=== PATIENT | male | born 1965 | race Caucasian/White ===

== ENCOUNTER 2016-11-24 07:34 | Outpatient (CLI) | payer BC ==
[2016-11-24 08:23] LABS: ALT (SGPT) 39 U/L (0-55); AST (SGOT) 23 U/L (5-34); Alkaline Phosphatase 39 U/L (40-150); Bilirubin, Direct 0.2 mg/dL (0.1-0.3); Bilirubin, Total 0.5 mg/dL (0.2-1.2); Protein, Total 7.4 g/dL (6.0-8.3)
== END 2016-11-24 07:35 | disposition home or self-care (01) ==
LOC: BURLAB 07:34
PROVIDERS: ATTEND Urology
DX: E29.1 Testicular hypofunction (principal)
CPT/HCPCS: 36415; 80076

== ENCOUNTER 2017-01-24 07:37 | Outpatient (CLI) | payer BC ==
[2017-01-24 08:27] LABS: #Basophils 0.1 thou/uL (0.0-0.2); #Eosinphils 0.1 thou/uL (0.0-0.7); #Lymphocytes 2.1 thou/uL (1.20-3.40); #Monocytes 0.5 thou/uL (0.11-0.59); #Neutrophils 4.1 thou/uL (1.40-6.50); %Basophils 1.2 % (0.0-1.0); %Lymphocytes 29.8 % (21.0-51.0); %Monocytes 6.8 % (0.0-10.0); %Neutrophils 60.2 % (42.0-75.0); Hemoglobin 17.2 g/dL (14.0-18.0); Mean Corpuscular HGB CONC 34.2 g/dL (32.0-36.0); Mean Corpuscular Volume 87.8 fl (80.0-94.0); Mean Platelet Volume 8.1 fL (7.4-10.4); Platelet Count 212 thou/uL (130-400); Red Blood Cell (RBC) Count 5.75 mill/uL (4.70-6.10); White Blood Cell (WBC) Count 6.9 thou/uL (4.8-10.8)
[2017-01-24 08:37] LABS: Cardiac Risk 5.4 (Less than 4.5)
== END 2017-01-24 07:38 | disposition home or self-care (01) ==
LOC: BURLAB 07:37
PROVIDERS: ATTEND Urology
DX: Z00.00 Encounter for general adult medical examination without abnormal findings (principal); E78.2 Mixed hyperlipidemia; E29.1 Testicular hypofunction; Z79.899 Other long term (current) drug therapy
CPT/HCPCS: 36415; 80061; 84403; 85025; G0103

== ENCOUNTER 2017-05-25 07:57 | Outpatient (CLI) | payer BC ==
[2017-05-25 09:01] LABS: ALT (SGPT) 47 U/L (8-55); AST (SGOT) 25 U/L (5-34); Albumin 4.4 g/dL (3.5-5.0); Alkaline Phosphatase 32 U/L (40-150); Anion Gap 16 mmol/L (10-20); BUN (Urea Nitrogen) 15 mg/dL (8.4-25.7); Bilirubin, Total 0.7 mg/dL (0.2-1.2); Calc. Creatinine Clearance 0 mL/min (70-130); Calcium 9.1 mg/dL (7.8-10.44); Carbon Dioxide 23 mmol/L (22-29); Chloride 105 mmol/L (98-107); Estimated GFR-MDRD 64; Globulin 2.9 g/dL (2.4-3.5); Glucose 203 mg/dL (70-105); Potassium 3.9 mmol/L (3.5-5.1); Protein, Total 7.3 g/dL (6.0-8.3); Sodium 140 mmol/L (136-145)
[2017-05-25 09:19] LABS: Free T4 (Free Thyroxine) 0.89 ng/dL (0.70-1.48); Thyroid Stimulating Hormone 0.6432 uIU/mL (0.35-4.94); Vitamin D, 25 Hydroxy 36.4 ng/ml (> 30.0)
== END 2017-05-25 07:58 | disposition home or self-care (01) ==
LOC: BURLAB 07:57
PROVIDERS: ATTEND Internal Medicine Endocrinology, Diabetes & Metabolism
DX: E55.9 Vitamin D deficiency, unspecified (principal); E66.3 Overweight; E03.9 Hypothyroidism, unspecified; E29.1 Testicular hypofunction; R73.9 Hyperglycemia, unspecified
CPT/HCPCS: 36415; 80053; 82306; 82672; 83036; 84403; 84439; 84443

== ENCOUNTER 2018-03-29 14:34 | Outpatient (CLI) | payer BC ==
[2018-03-29 18:05] LABS: Hemoglobin 15.9 g/dL (14.0-18.0); Mean Corpuscular HGB CONC 32.7 g/dL (32.0-36.0); Mean Corpuscular Hemoglobin 28.4 pg (27.0-31.0); Mean Platelet Volume 7.8 fL (7.4-10.4); Platelet Count 208 thou/uL (130-400); RBC Distribution Width 13.4 % (11.5-14.5); Red Blood Cell (RBC) Count 5.61 mill/uL (4.70-6.10); White Blood Cell (WBC) Count 7.7 thou/uL (4.8-10.8)
[2018-03-29 18:07] LABS: Anion Gap 13 mmol/L (10-20); BUN (Urea Nitrogen) 25 mg/dL (8.4-25.7); Calc. Creatinine Clearance 0 mL/min (70-130); Carbon Dioxide 26 mmol/L (22-29); Chloride 107 mmol/L (98-107); Estimated GFR-MDRD 48; Glucose 104 mg/dL (70-105); Sodium 142 mmol/L (136-145)
[2018-03-29 18:19] LABS: Albumin (w/Testosterone Panel) 4.8 g/dL
[2018-03-29 18:43] LABS: Sex Hormone Binding Globulin 9.1 nmol/L (11-78); Testosterone, Free 249.8 pg/mL (47-244); Testosterone, Total 772.8 ng/dL (221-716)
--- NOTE | 2018-03-29 20:51 | ULT ---
BILATERAL RENAL ULTRASOUND 03/29/18 Ultrasonography of the urinary tract was performed. The right kidney measures 11.5 x 6.6 cm. Cortex i s ample and is of normal echogenicity. No renal mass or hydronephrosis was seen. The left kidney christi ures 12.6 x 6.0 cm. It also shows normal appearing cortex and no sign of hydronephrosis. This kidney does have a 1.7 cm cyst in its central portions, a finding of doubtful significance. Several frames through the urinary bladder were obtained. The bladder is not full, so pathology could be missed within it. None was seen, however. Evaluation of bladder wall thickness is not possible gi ve its partial decompressed state. IMPRESSION: 1. No evidence of urinary tract obstruction. 2. 1.7 cm cyst, left kidney. Probably of no concern. POS: HOME
== END 2018-03-29 14:35 | disposition home or self-care (01) ==
LOC: BURULT 14:34
PROVIDERS: ATTEND Urology
DX: E29.1 Testicular hypofunction (principal); N28.1 Cyst of kidney, acquired
CPT/HCPCS: 36415; 76770; 80048; 82670; 84153; 84154; 84270; 84403; 85027